=== PATIENT | male | born 1985 | race Asian ===

== ENCOUNTER 2019-12-07 18:57 | Emergency (ER) | payer BC ==
[~2019-12-07] VITALS: Ht 162.6 cm; Wt 65.8 kg
[2019-12-07 19:16] VITALS: Ht 162.6 cm; Wt 65.8 kg
[2019-12-07 21:09] VITALS: BP 138/78
== END 2019-12-07 21:09 | disposition home or self-care (01) ==
LOC: ED 18:57
DX: J40 Bronchitis, not specified as acute or chronic (principal)
CPT/HCPCS: Q0092

== ENCOUNTER 2019-12-12 16:28 | Emergency (ER) | payer BC ==
[~2019-12-12] VITALS: Ht 162.6 cm; Wt 63.5 kg
[2019-12-12 16:39] VITALS: Ht 162.6 cm; Wt 63.5 kg
[2019-12-12 17:10] VITALS: BP 135/84
== END 2019-12-12 17:07 | disposition home or self-care (01) ==
LOC: ED 16:28
DX: Z02.79 Encounter for issue of other medical certificate (principal); B34.9 Viral infection, unspecified